=== PATIENT | male | born 1995 | race Caucasian/White ===

== ENCOUNTER 2020-09-12 06:58 | Emergency (ER) | payer OTHER, SELFPAY ==
[~2020-09-12] VITALS: Ht 165.1 cm; Wt 74.4 kg
[2020-09-12 07:00] VITALS: BP 165/117; Ht 165.1 cm; Wt 74.4 kg
== END 2020-09-12 08:05 | disposition home or self-care (01) ==
LOC: ED 06:58
DX: R05 Cough (principal); R51.9 Headache, unspecified; R11.2 Nausea with vomiting, unspecified; Z20.828 Contact with and (suspected) exposure to other viral communicable diseases
CPT/HCPCS: Q0162; U0003

== ENCOUNTER 2020-09-13 12:39 | Emergency (ER) | payer OTHER, SELFPAY ==
[~2020-09-13] VITALS: Ht 152.4 cm; Wt 74.4 kg
[2020-09-13 12:42] VITALS: Ht 152.4 cm; Wt 74.4 kg
[2020-09-13 14:10] LABS: BASOPHIL % 1.2 % (0.2-1.5); PLATELET COUNT 267 x10^3mcL (152-348); RED CELL DISTRIBUTION WIDTH 12.4 % (12.1-16.2)
[2020-09-13 14:15] LABS: CALCIUM 9.4 mg/dL (8.5-10.1); CARBON DIOXIDE 21.8 mmol/L (21-32); CHLORIDE SERUM 97 mmol/L (98-107); CREATININE SERUM 1.2 mg/dL (0.7-1.3); GFR1 > 60 mL/min; GLUCOSE SERUM 157 mg/dL (74-106); POTASSIUM SERUM 3.1 mmol/L (3.5-5.1); SODIUM SERUM 138 mmol/L (136-145)
[2020-09-13 14:19] LABS: ALBUMIN 4.7 g/dL (3.4-5.0); ALKALINE PHOSPHATASE 93 U/L (46-116); ALT/SGPT 94 U/L (16-63); AST/SGOT 85 U/L (15-37); BILIRUBIN TOTAL 1.38 mg/dL (0.20-1.00); LIPASE 122 IU/L (73-393)
[2020-09-13 14:33] LABS: rbc morphology (normal/abnorm) NORMAL (NORMAL)
[2020-09-13 17:27] VITALS: BP 154/95
== END 2020-09-13 17:27 | disposition home or self-care (01) ==
LOC: ED 12:39
PROVIDERS: Emergency Medicine
DX: E86.0 Dehydration (principal); E87.6 Hypokalemia; R25.2 Cramp and spasm; Z20.828 Contact with and (suspected) exposure to other viral communicable diseases
CPT/HCPCS: 36600; J2405; J7030

== ENCOUNTER 2020-09-21 08:23 | Emergency (ER) | payer OTHER, SELFPAY ==
[~2020-09-21] VITALS: Ht 165.1 cm; Wt 74.4 kg
[2020-09-21 08:25] VITALS: Ht 165.1 cm; Wt 74.4 kg
[2020-09-21 10:11] LABS: ALBUMIN 4.2 g/dL (3.4-5.0); ALKALINE PHOSPHATASE 101 U/L (46-116); ALT/SGPT 217 U/L (16-63); AST/SGOT 160 U/L (15-37); BILIRUBIN TOTAL 0.71 mg/dL (0.20-1.00); CHLORIDE SERUM 98 mmol/L (98-107); CREATININE SERUM 0.8 mg/dL (0.7-1.3); GFR1 > 60 mL/min; GLUCOSE SERUM 114 mg/dL (74-106); POTASSIUM SERUM 3.6 mmol/L (3.5-5.1); SODIUM SERUM 134 mmol/L (136-145)
[2020-09-21 10:21] LABS: TOTAL PROTEIN, SERUM 8.4 g/dL (6.4-8.2)
[2020-09-21 10:27] LABS: CARBON DIOXIDE 25.9 mmol/L (21-32)
[2020-09-21 10:44] VITALS: BP 140/97
== END 2020-09-21 10:44 | disposition home or self-care (01) ==
LOC: ED 08:23
PROVIDERS: Emergency Medicine
DX: K52.9 Noninfective gastroenteritis and colitis, unspecified (principal); E86.0 Dehydration; K57.90 Diverticulosis of intestine, part unspecified, without perforation or abscess without bleeding; Z20.828 Contact with and (suspected) exposure to other viral communicable diseases
CPT/HCPCS: J2405; J7030; U0003

== ENCOUNTER 2020-10-12 10:44 | Emergency (ER) | payer OTHER, SELFPAY ==
[~2020-10-12] VITALS: Ht 165.1 cm; Wt 73.9 kg
[2020-10-12 10:47] VITALS: Ht 165.1 cm; Wt 73.9 kg
[2020-10-12 11:26] LABS: BASOPHIL % 0.7 % (0.2-1.5); PLATELET COUNT 285 x10^3mcL (152-348); RED CELL DISTRIBUTION WIDTH 13.1 % (12.1-16.2)
[2020-10-12 11:34] LABS: CALCIUM 9.4 mg/dL (8.5-10.1); CARBON DIOXIDE 27.9 mmol/L (21-32); CHLORIDE SERUM 101 mmol/L (98-107); GFR1 > 60 mL/min; GLUCOSE SERUM 112 mg/dL (74-106); POTASSIUM SERUM 4.2 mmol/L (3.5-5.1); SODIUM SERUM 136 mmol/L (136-145)
[2020-10-12 11:38] LABS: ALBUMIN 4.7 g/dL (3.4-5.0); ALKALINE PHOSPHATASE 90 U/L (46-116); ALT/SGPT 128 U/L (16-63); AST/SGOT 90 U/L (15-37); BILIRUBIN TOTAL 0.7 mg/dL (0.20-1.00); LIPASE 148 IU/L (73-393); MAGNESIUM 1.7 mg/dL (1.8-2.4)
[2020-10-12 11:39] LABS: TOTAL PROTEIN, SERUM 9.1 g/dL (6.4-8.2)
[2020-10-12 13:08] LABS: AMPHETAMINE QUAL UR NONE DETECTED (See below)
[2020-10-12 13:51] VITALS: BP 144/91
== END 2020-10-12 13:51 | disposition home or self-care (01) ==
LOC: ED 10:44
PROVIDERS: Emergency Medicine
DX: K52.9 Noninfective gastroenteritis and colitis, unspecified (principal); F12.90 Cannabis use, unspecified, uncomplicated
CPT/HCPCS: J2405; J7030; U0003

== ENCOUNTER 2020-10-28 12:31 | Emergency (ER) | payer OTHER ==
[~2020-10-28] VITALS: Ht 165.1 cm; Wt 71.7 kg
[2020-10-28 12:44] VITALS: BP 155/110; Ht 165.1 cm; Wt 71.7 kg
== END 2020-10-28 13:59 | disposition left against medical advice (07) ==
LOC: ED 12:31
DX: Z53.21 Procedure and treatment not carried out due to patient leaving prior to being seen by health care provider (principal)

== ENCOUNTER 2020-10-31 07:55 | Emergency (ER) | payer OTHER, SELFPAY ==
[~2020-10-31] VITALS: Ht 165.1 cm; Wt 71.7 kg
[2020-10-31 08:00] VITALS: Ht 165.1 cm; Wt 71.7 kg
[2020-10-31 08:36] LABS: PLATELET COUNT 258 x10^3mcL (152-348); RED CELL DISTRIBUTION WIDTH 13.3 % (12.1-16.2)
[2020-10-31 08:58] LABS: AMPHETAMINE QUAL UR NONE DETECTED (See below)
[2020-10-31 09:05] LABS: CALCIUM 8.9 mg/dL (8.5-10.1); CARBON DIOXIDE 28.7 mmol/L (21-32); CHLORIDE SERUM 99 mmol/L (98-107); CREATININE SERUM 0.7 mg/dL (0.7-1.3); GFR1 > 60 mL/min; GLUCOSE SERUM 111 mg/dL (74-106); POTASSIUM SERUM 3.6 mmol/L (3.5-5.1); SODIUM SERUM 139 mmol/L (136-145)
[2020-10-31 09:18] LABS: ALBUMIN 4.1 g/dL (3.4-5.0); ALKALINE PHOSPHATASE 95 U/L (46-116); ALT/SGPT 113 U/L (16-63); AST/SGOT 141 U/L (15-37); BILIRUBIN TOTAL 0.7 mg/dL (0.20-1.00); T4(THYROXINE) 5.8 ug/dL (4.7-13.3); TOTAL PROTEIN, SERUM 8.7 g/dL (6.4-8.2)
[2020-10-31 13:20] VITALS: BP 148/84
== END 2020-10-31 13:20 | disposition home or self-care (01) ==
LOC: ED 07:55
PROVIDERS: Emergency Medicine
DX: F32.9 Major depressive disorder, single episode, unspecified (principal); F12.10 Cannabis abuse, uncomplicated; F19.10 Other psychoactive substance abuse, uncomplicated; F17.210 Nicotine dependence, cigarettes, uncomplicated; Z20.822 Contact with and (suspected) exposure to COVID-19; Y90.6 Blood alcohol level of 120-199 mg/100 ml
CPT/HCPCS: G0480; J2060; U0003